=== PATIENT | female | born 1985 | race Caucasian/White ===

== ENCOUNTER 2020-11-16 13:10 | Outpatient (CLI) | payer BC, SELFPAY ==
--- NOTE | 2020-11-16 | ECG_ITS ---
Measurements Intervals [place] Rate: 98 P: 58 OK: 129 QRS: -1 QRSD: 89 T: 7 QT: 332 QTc: 424 Interpretive Statements SINUS RHYTHM FREQUENT VENTRICULAR PREMATURE COMPLEXES LOW QRS VOLTAGE IN PRECORDIAL LEADS BORDERLINE R WAVE PROGRESSION, ANTERIOR LEADS BORDERLINE T WAVE ABNORMALITY- INFERIOR LEADS ABNORMAL ECG Electronically Signed On 11-16-2020 14:06:24 CDT by Akash Melgoza D.O.
== END 2020-11-16 13:11 | disposition home or self-care (01) ==
PROVIDERS: PCP Family Medicine
DX: Z01.810 Encounter for preprocedural cardiovascular examination (principal); R94.31 Abnormal electrocardiogram [ECG] [EKG]
CPT/HCPCS: 93005

== ENCOUNTER 2025-01-15 14:18 | Outpatient (CLI) | payer BC, SELFPAY ==
--- NOTE | ~2025-01-15 | MM_ITS ---
EXAMINATION: MM scrn gil implant BI w chemo INDICATION: Asymptomatic, referred for screening mammogram COMPARISON: 12/20/2015 TECHNIQUE: Digital Breast Tomosynthesis CC, MLO, and implant displaced CC and MLO views of Both breasts were obtained with computer-aided detection to assist in interpretation of the study. FINDINGS: There are scattered areas of fibroglandular density. Bilateral breast Retropectoral Silicone implants in place appears intact. No focal dominant mass, architectural distortion, or suspicious microcalcifications are identified. There are no features to suggest malignancy. IMPRESSION: 1. No evidence of malignancy in the breasts. 2. Both breasts Retropectoral Silicone implants appears intact. Recommend continued screening mammography BI-RADS 1, NEGATIVE Reviewed, dictated and finalized at location [facility]. [facility]
--- OUTSIDE RECORDS SUMMARY | 2025-01-15 20:31 | XMS_ITS | Clinical Summary ---
Author Organization [facility] Address [address] [place] [address] Care Team Providers Care Coater Slate Name Role Phone Aziza Zelaya DO Primary Care Provider Source Comments [facility],non-owned Affiliates and Associated Physician Practices is amultiple site organization consisting of ambulatory clinics and hospital sitesin [place], [place], [place] and [place]. This disclosure is being madepursuant to the Care Everywhere program and may not contain all information available regarding this patient. Last updated 17.[facility] Allergies No known active allergies Medications * Be aware that medications may not be up to date on this document. Alwaysverify current medications with the patient. AGUSTIN CONTOUR NEXT TEST test strip Use 1 Each as instructed once daily 7 8 Active insulin syringe-needle (BD ULTRAFINE II) 31G X 5/16 0.5 ML syringe 1 Each by Injection route as needed 10 9 Active MICROLET LANCETS MISC Use 1 Each as instructed as needed 7 8 Active Vit-Fe Fumarate-FA ( VITAMIN) 27-0.8 MG tablet Take 1 tablet by mouth once daily Active insulin aspart (NOVOLOG) vial Starting dose 16 units at bkrfst and supper. Increase only as instructed up to 60 units total per day. 20 mL 3 9 Active Additional Information Patient not taking.Reported on 12/05/2021 NOVOLIN N vial Current dose inject 18 units am and 25 units HS. Increase only as instructed up to 60 units per day. 20 mL 3 9 Active Additional Information Patient not taking.Reported on 12/05/2021 Acetaminophen 325 MG CAPS Take 1 tablet by mouth once daily Active ferrous sulfate CR (SLOW FE) 160 (50 Fe) MG tabletIndicatio ns:Iron Deficiency Take 160 mg by mouth daily with breakfast Reasons: Iron Deficiency Active valACYclovir (VALTREX) 1 GM tablet TAKE 1 TABLET BY MOUTH EVERY 12 HOURS FOR 3 DAYS 2 Active Active Problems Problem Noted Date Diagnosed Date Excess weight gain in , third trimester 08/08/2018 High-risk 07/06/2018 Borderline hypertension 07/06/2018 Overview (07/06/2018): 134/87 at 10 weeks Maternal morbid obesity, antepartum 07/05/2018 Overview (07/05/2018): Pre- BMI 40.7 History of umbilical hernia repair 07/05/2018 Overview (07/05/2018): 2016 History of LEEP (loop electr osurgical excision procedure) of cervix complicating 07/05/2018 Overview (07/06/2018): 2003; two subsequent term vaginal deliveries Insulin controlled gestation al diabetes mellitus (GDM) during 04/03/2018 Overview (07/20/2018): Early diagnosis. HbA1C 02/12/2018 5.6%. Technically she has T2DM (A1c 6.7% in 2017, improved with weight loss) that was diet-controlled before , and now requires insulin in . Her A1c was low enough early on that risks of malformations are closer to what is expected with GDM, rather than pre-existing disease. Her risks of complications are probably intermediate. 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 Two children without CF. Lab tests not available. Immunizations Immunization Administration Dates Next Due INFLUENZA VACCINE, QUADR. 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 Gender Identity Not on file Sexual Orientation Not on file Last Filed Vital Signs Vital Sign Reading Time Taken Comments Blood Pressure 114/79 12/05/2021 9:45 AM CDT Pulse 79 12/05/2021 9:45 AM CDT Temperature 36.8 C (98.2 F) 12/05/2021 9:45 AM CDT Respiratory Rate - - Oxygen Saturation 97% 12/05/2021 9:45 AM CDT Inhaled Oxygen Concentration - - Weight 81.5 kg (179 lb 9.6 oz) 12/05/2021 9:45 A M CDT Height 170.2 cm (5' 7) 12/05/2021 9:45 AM CDT Body Mass Index 28.13 12/05/2021 9:45 AM CDT Plan of Treatment Health Maintenance Due Date Last Done Comments LIPID TESTING 1984 MAMMOGRAM 1984 HIV SCREENING 05/30/1999 HEPATITIS C SCREENING 05/25/2002 HEPATITIS B VACCINE (1 of 3 - 19+ 3-dose series) 05/30/2003 HPV VACCINE (1 - 3-dose SCDM series) 05/30/2011 PAP with HPV 01/11/2022 01/11/2017 (Done Outside Per Report) DEPRESSION SCREENING 03/12/2024 COVID-19 VACCINE ( - season) 2024 11/03/2020, 10/14/2020 INFLUENZA VACCINE (#1) 2024 9, 12/17/2014, 05/18/2014, Additional history exists DTAP/TDAP/TD VACCINES (2 - Td or Tdap) 2028 2018 ZOSTER VACCINE (1 of 2) 2034 HIB VACCINE Aged Out No longer eligi ble based on patient's age to complete this topic MENINGOCOCCAL (Group B) VACCINE SHARED DECISION-MAKING Aged Out No longer eligible based on patient's age to complete this topic MENINGOCOCCAL GROUPS A/C/Y/W VACCINE Aged Out No longer eligible based on patient's age to complete this topic PNEUMOCOCCAL VACCINE Aged Out No long er eligible based on patient's age to complete this topic Insurance ANTH Care Teams Coater Slate Relationship Specialty Start Date End Date Aziza Zelaya DO [address] [place] [phone] PCP - General 08/19/21
--- OUTSIDE RECORDS SUMMARY | 2025-01-15 20:31 | XMS_ITS | Clinical Summary ---
Author Organization [facility] Address [address] [place] [place] [address] Phone Care Team Providers Care Case Checker Name Role Phone Aziza Zelaya Primary Care Provider [phone] Allergies No known active allergies Medications HYDROcodone-acet aminophen (HYCET) 7.5-325 mg/15 mL SolutionIndicati ons:Preop testing Take 15 mL by mouth every 6 hours as needed for Pain, Severe. Max Daily Amount: 60 mL 300 mL 11/25/2020 12:14 PM CDT 11/24/2020 Active ondansetron (Zofran ODT) 4 mg Tablet, Rapid DissolveIndicati ons:nausea Place 1 Tablet (4 mg) under tongue every 6 hours as needed for Nausea/Vomi ting. 28 Tablet 11/25/2020 12:14 PM CDT 11/24/2020 Active Active Problems Problem Noted Date Diagnosed Date Prediabetes 11/25/2020 Post-operative nausea and vomiting 11/25/2020 General medical exam 11/24/2020 Obesity (BMI 35.0-39.9 without comorbidity) 11/10 Postoperative pain 11/24/2020 Immunizations Immunization Administration Dates Next Due (ADACEL/BOOSTRIX)(10 YR UP) TDAP VACCINE, 0.5ML, IM 2018 (PFIZER)(12 YR UP) COVID-19 VACCINE - EMERGENCY USE AUTHORIZATION, MRNA, [id number](PF) 30 MCG/0.3 ML IM SUSP 11/03/2020,10/14/2020 INFLUENZA VACCINE QUADRIVALENT 6 MOS UP PF IM Family History Medical History Relation Name Comments Healthy Father Healthy Mother Relation Name Status Comments Father Alive Mother Alive Social History Tobacco Use Types Packs/Day Years Used Date Smoking Tobacco: Former Cigarettes 1 6 0 11/23/2006 - 11/23/2012 Smokeless Tobacco: Never Alcohol Use Standard Drinks/Week Comments Not Currently 0 (1 standard drink = 0.6 oz pur e alcohol) Comments No Sex and Gender Information Value Date Recorded Sex Assigned at Not on file Legal Sex Female 8:02 AM CDT Gender Identity Not on file Sexual Orientation Not on file Last Filed Vital Signs Vital Sign Reading Time Taken Comments Blood Pressure 114/69 10/04/2022 2:46 PM CDT Pulse 98 10/04/2022 2:30 PM CDT Temperature 36.1 C (97 F) 10/04/2022 1:21 PM CDT Respiratory Rate 71 10/04/2022 2:46 PM CDT Oxygen Saturation 97% 10/04/2022 2:46 PM CDT Inhaled Oxygen Concentration - - Weight 79.4 kg (175 lb) 09/28/2022 9:04 AM CDT Height 170.2 cm (5' 7) 09/28/2022 9:04 AM CDT Body Mass Index 27.41 09/28/2022 9:04 AM CDT Plan of Treatment Health Maintenance Due Date Last Done Comments HEPATITIS B VACCINES (1 of 3 - 19+ 3-dose series) 05/30/2003 HPV/Cotest (21-29) 2005 HPV/Cotest (30-65) 2014 BREAST CANCER SCREENING 2024 INFLUENZA VACCINE (#1) 2024 9, 12/17/2014, 05/18/2014 COVID-19 Vaccine ( - 2024-2 6 season) 2024 11/03/2020, 10/14/2020 CERVICAL CANCER SCREENING 07/31/2025 PAP SMEAR 07/31/2025 07/31/2022, 06/25/2020 DTAP/TDAP/TD VACCINES (3 - T d or Tdap) 2028 2018, 05/18/2014 HPV VACCINES Completed 02/11/2008, 03/2007, 07/12/2007, Additional history exists Medical Devices Implanted Type Area Associate Engineer Device Identifier Shelf Expiration Date Model / Serial / Lot Seamguard Endogia 60 Blk [id number] - [id number] Implanted:Qty : 3 on 11/24/2020 by Jose Gonzalez MD at [facility] Biological N/A: Stomach [employer] 10/19/2023 [id number] [id number] / / [id number] Seamguard Endogia 60 Prpl [id number] - [id number] Implanted:Qty : 2 on 11/24/2020 by Jose Gonzalez MD at [facility] Biological N/A: Stomach [employer] 08/22/2023 [id number] [id number] / / [id number] Imp Breast Inspira 695ml Full Prfl Scf-695 - Mswb - [id number] Implanted:Qty : 1 on 10/04/2022 by Peter Durbin MD at [facility] Mammary Left: Breast [employer] [id number] 11/22/2026 SCF-695 / [id number] / [id number] Imp Breast Inspira 745ml Full Prfl Scf-745 - Mswb - [id number] Implanted:Qty : 1 on 10/04/2022 by Peter Durbin MD at [facility] Mammary Right: Breast [employer] [id number] 12/24/2023 SCF-745 / [id number] / [id number] Mesh Abdomen Insurance [employer] Commercial Advance Directives For more information, please contact: [phone] * Full Code (Latest Code Status on File) Date Activated Date Inactivated Comments 10/04/2022 10:56 AM 10/05/2022 3:00 AM * Full Code Date Activated Date Inactivated Comments 11/24/2020 6:08 AM 11/25/2020 6:22 PM Care Teams Case Checker Relationship Specialty Start Date End Date Aziza Zelaya DO [address] [place] [phone] PCP - General Family Practice 11/24/20
--- OUTSIDE RECORDS SUMMARY | 2025-01-15 20:31 | XMS_ITS | Encounter Summary ---
Author Organization [facility] Address [address] [place] [address] Care Team Providers Care Red Cross Worker Name Role Phone Aziza Zelaya DO Primary Care Provider [phone] Encounter Details Date Type Department Care Team (Late st Contact Info) Description 11/12/2020 Abstract [facility] Operating Room [address] [phone] Mikki Metz RN Social History Tobacco Use Types Packs/Day Years Used Date Smoking Tobacco: Never Assessed Comments Unknown Sex and Gender Information Value Date Recorded Sex Assigned at Not on file Legal Sex Female 8:02 AM CDT Gender Identity Not on file Sexual Orientation Not on file documented as of this encounter Plan of Treatment Not on file documented as of this encounter Visit Diagnoses Not on filedocumented in this encounter Care Teams Red Cross Worker Relationship Specialty Start Date End Date Aziza Zleaya DO [address] [place] [phone] PCP - General Family Practice 11/24/20 documented as of this encounter
--- OUTSIDE RECORDS SUMMARY | 2025-01-15 20:31 | XMS_ITS | Encounter Summary ---
Author Organization [facility] Address [address] [place] [address] Care Team Providers Care Web Operations Specialist Name Role Phone Aziza Zelaya DO Primary Care Provider [phone] Encounter Details Date Type Department Care Team (Late st Contact Info) Description 04/12/2023 Lab Requisition [facility] - Derm[facility] Lab [address] [place] [address] Eusebio Ovalle MD [address] [place] [address] Social History Tobacco Use Types Packs/Day Years Used Date Smoking Tobacco: Never Smokeless Tobacco: Never Alcohol Use Standard Drinks/Week Comments No 0 (1 standard drink = 0.6 oz pur e alcohol) Comments No Sex and Gender Information Value Date Recorded Sex Assigned at Not on file 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 Gender Identity Not on file Sexual Orientation Not on file documented as of this encounter Plan of Treatment Not on file documented as of this encounter Procedures Procedure Name Priority Date/Time Associated Diagnosis Comments DERMATOPATHOLOGY Routine 04/10/2023 3:33 AM LEATHER GOODS II ASSEMBLER documented in this encounter Results * DERMATOPATHOLOGY (04/10/2023 3:33 AM LEATHER GOODS II ASSEMBLER) Case Report Dermatopathology Report Case: [id number] Authorizing Provider: Eusebio Ovalle MD Collected: 04/10/2023 03:33 AM Ordering Location: [facility] Lab Received: 04/12/2023 11:53 AM Pathologist: Yun Garcia MD Specimen: Skin, left mid scalp 1:30 PM [facility]MAT[facility] Final Diagnosis Specimen A. 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 Path# [id number] 1:30 PM [facility]MATOPATHOLOG[facility] Gross Description Specimen A: Received is one formalin filled container labeled with the patient's name and designated left mid scalp. The specimen consists of a shave biopsy measuring 5x5x3 mm. Jar 0. 1:30 PM [facility]ERMATOPATHOLOG[facility] Microscopic Description Specimen A. SKIN, left mid scalp: Sections show nests, cords, and strands of cytologically bland melanocytes that mature with descent into the dermis. There are areas in which the melanocytes have a neuroid appearance. 1:30 PM [facility]ERMATOPATHOLOG[facility] Disclaimer An external and internal positive and negative controls are appropriate for the histochemical, immunohistochemical and immunofluorescence stain(s) in this case (if any), except where stated explicitly. The performance characteristics of the stain(s) cited in this report were developed and its performance characteristic determined by the Dermatopathology Laboratory at [facility], directed by Dr. Robe Yanez. These tests need not be, and therefore are not, approved by the [place] Food and Drug Administration. The tests are used for clinical purposes. Billing Codes Specimen Charges Stain Charges 68806 1 1:30 PM [facility]ERMATOPATHOLOG[facility] Embedded Images 1:30 PM [facility]MATOPATHOLOG[facility] Pathology/Cytolo gy TISSUE SPECIMEN FROM SKIN / Unknown 04/10/2023 3:33 AM LEATHER GOODS II ASSEMBLER 04/12/2023 11:53 AM LEATHER [employer] II ASSEMBLER us Eusebio Ovalle MD LAB - PATHOLOGY/CYTOLOGY ORDER ABDOULAYE Final Result DERMATOPATHOLOGY LABORATORY [facility] - Department of Dermatology [facility] [address] [place] [address], [address] [phone] documented in this encounter Visit Diagnoses Not on filedocumented in this encounter Care Teams Web Operations Specialist Relationship Specialty Start Date End Date Aziza Zelaya DO [address] [place] [phone] PCP - General 08/19/21 documented as of this encounter
--- OUTSIDE RECORDS SUMMARY | 2025-01-15 20:32 | XMS_ITS | Data Portability ---
Author Organization [facility] Address [address] [place] [address] Care Team Providers Care Commercial Electrician Name Role Phone [place] Primary Care Provider Assessment Encounter Date Assessment Date Assessment LastModified by Organization Details LastModified Time 07/31/2022 07/31/2022 Annual gynecological exam performed. Patient will come back in a year unless there are new symptoms. Not available 07/31/2022 12:02:46 08/02/2023 08/02/2023 Annual gynecological exam performed. Patient will come back in a year unless there are new symptoms. [email or web address] Not available 08/02/2023 09:45:54 09/04/2024 09/04/2024 Annual gynecological exam performed. Patient will come back in a year unless there are new symptoms. [email or web address] Not available 09/04/2024 10:15:49 Plan of Treatment Reminders Order Date Submit Date Provider Last Modified By Organization Details Last Modified Time Details Appointments None recorded. Lab None recorded. Referral None recorded. Procedures None recorded. Surgeries None recorded. Imaging None recorded. Medication Orders Valtrex 1 gram tablet [id number] [email or web address] [facility][id number], [place], [place], [id number], 09:41:39 Patient TargetsNo targets recorded. Patient InstructionsNo instructions recorded. Reason for Referral None Reported. Results Created Date Observation Date Name Description Value Unit Range Abnormal Flag Note LastModifiedBy Organization Detail LastModifiedTime 07/30/192022 HEPAT ITIS B SURFA CE ANTIG EN hepatitis B surface antigen Non-re active non-re active This assay was perfo rmed using [employer] ratio n reage nts and test kits. Value s obtai mikaela with other assay metho ds or kits canno t be used inter [facility] . Not Available [facility] (Lab) [address] [place], [address], 08/01/2021 20:42:08 07/30/19 22 07/29/2021 HEPAT ITIS C ANTIB GOLDY SCREE N, REFLE X TO CONFI RMATI ON hepatitis C antibody Non-re active non-re active This assay was perfo rmed using [employer] reage nts and test kits. Value s obtai mikaela with other assay metho ds or kits canno t be used inter [facility] . Not Available [facility] (Lab) [address], [place], [address], 08/01/2021 20:42:09 07/30/19 22 07/29/2021 HERPE S SIMPL EX VIRUS TYPE 2 SPECI FIC AB, IGG herpes simplex virus 2 IgG Positi ve negati ve abnormal Not Available [facility] (Lab) [address] [place], [address], 08/01/2021 20:42:09 07/30/19 22 07/29/2021 HERPE S SIMPL EX VIRUS TYPE 2 SPECI FIC AB, IGG herpes simples virus 2 IgG, quant 4.6 ai 0.0-0. 8 high Not Available [facility] (Lab) [address] [place], [address], 08/01/2021 20:42:09 07/30/19 22 07/29/2021 HIV 1/2 ANTIG EN/AN TIBOD Y, REFLE X CONFI RMATI ON HIV Ag-Ab total quant 0.13 idx <1.00 Not Available [facility] (Lab) [address] [place], [address], 08/01/2021 20:42:10 07/30/19 22 07/29/2021 HIV 1/2 ANTIG EN/AN TIBOD Y, REFLE X CONFI RMATI ON HIV Ag-Ab total Non-re active non-re active Not Available [facility] (Lab) [address], [place], [address], 08/01/2021 20:42:10 07/30/19 22 07/29/2021 HIV 1/2 ANTIG EN/AN TIBOD Y, REFLE X CONFI RMATI ON HIV-1 antibody quant 0.10 idx <1.00 Not Available [facility] (Lab) [address], [place], [address], 08/01/2021 20:42:10 07/30/19 22 07/29/2021 HIV 1/2 ANTIG EN/AN TIBOD Y, REFLE X CONFI RMATI ON HIV-1 antibody Non-re active non-re active Not Available [facility] (Lab) [address], [place], [address], 08/01/2021 20:42:10 07/30/19 22 07/29/2021 HIV 1/2 ANTIG EN/AN TIBOD Y, REFLE X CONFI RMATI ON HIV-1 antigen (P24) quant 0.13 idx <1.00 Not Available [facility] (Lab) [address] [place], [address], 08/01/2021 20:42:10 07/30/19 22 07/29/2021 HIV 1/2 ANTIG EN/AN TIBOD Y, REFLE X CONFI RMATI ON HIV-1 antigen (P24) Non-re active non-re active Not Available [facility] (Lab) [address], [place], [address], 08/01/2021 20:42:10 07/30/19 22 07/29/2021 HIV 1/2 ANTIG EN/AN TIBOD Y, REFLE X CONFI RMATI ON HIV-2 antibody quant 0.06 idx <1.00 Not Available [facility] (Lab) [address], [place], [address], 08/01/2021 20:42:10 07/30/19 22 07/29/2021 HIV 1/2 ANTIG EN/AN TIBOD Y, REFLE X CONFI RMATI ON HIV-2 antibody Non-re active non-re active HIV testi ng is perfo rmed using Multi plex- [employer]ead Immun oassa y techn ology . The final overa ll HIV Ag-Ab resul t is deter mined based on the final resul t for each indiv idual susan te. If any of the susan kenton has 2 or more repli cates that are REACT ANETA, the final overa ll HIV Ag-Ab resul t is also React aneta. A Non-R eacti ve test resul t at any point in the inves tigat ion of indiv idual subje cts does not precl ude the possi bilit y of expos ure to or infec tion with HIV-1 and/o r HIV-2 . Non-R eacti ve resul ts can occur if the quant ity of marke remedios prese nt in the sampl e is below the detec tion limit s of the assay . React aneta speci mens must be inves tigat ed by addit ional , more speci fic suppl ement al tests . Speci men confi rmati on will be perfo rmed by the [employer] us HIV 1/2 Suppl ement al Assay . The perfo rmanc e of this assay has not been estab lishe d for neona kenton and the assay shoul d not be used in indiv idual s young er than 2 years of age. Not Available [facility] (Lab) [address], [place], [address], 08/01/2021 20:42:10 07/30/19 22 07/29/2021 RPR SCREE N/REF FRITZ TITER /FTA RPR screen Nonrea ctive nonrea ctive Not Available [facility] (Lab) [address], [place], [address], 08/01/2021 20:42:10 07/30/19 22 07/29/2021 HEPAT ITIS B CORE, IGM hepatitis B core IgM antibody Negati ve negati ve Not Available [facility] (Lab) [address], [place], [address], 08/01/2021 20:42:10 07/30/19 22 07/29/2021 IMAGE GUIDE D PAP AND HPV REGAR DLESS image guided Pap, HPV regardless of Pap result SEE RESULT S BELOW CASE REPOR T: Cytol ogy Gynec ologi torito Repor t Case: [id number] Autho sybil g Provi shanta: Juanis Haynes MD Colle cted: 07/29 1512 Order ing Locat ion: [place] [facility] Recei tamiko: 08/01 0814 First Scree n: Carolina Sanchez ret, CT Rescr een: Catrina betancur, Felipa thomas, CT Speci men: Scree john Pap - Image d, Cervi x STATE MENT OF ADEQU ACY: Satis facto ry for evalu ation Trans forma tion zone compo nent prese nt FINAL DIAGN OSIS: Negat aneta for Intra epith elial Marioio n or Cecilia au (NIL) . Elect sergey colon gabbi d by Felipa Kwon, CT on 2021 at 5:34 PM ----- ----- ----- ----- ----- ----- ----- ----- ----- ----- ----- ----- ----- ----- ----- ----- ----- ---- HPV RESUL TS: HPV mRNA E6/E7 : No HPV mRNA Detec david NOTE: This high risk HPV mRNA assay detec ts fourt een high- risk HPV types (16, 18, 31, 33, 35, 39, 45, 51, 52, 56, 58, 59, 66, 68) witho ut diffe renti ation . COMME NT: Note: This speci men was revie wed by a Cytot echno logis t and/o r Patho logis t (as indic ated in this repor t) after evalu ation using the Thinp rep Imagi ng Syste m. CLINI TORITO INFOR MATIO N: Menst rual Statu s: LMP (if appli cable ): Clini torito Histo ry/Pr eviou s Pap: Type of Neopl amada (if appli cable ): Signi fican t Clini torito Findi ngs: Other Histo ry: Hormo johnny (if appli cable ): PAP EDUCA JAVIER L NOTE: The Pap Test is a scree john test with an inher ent false negat aneta rate. Liqui d-bas ed sampl ing may decre ase, but will not elimi lenore, false negat aneta resul ts. A negat aneta resul t does not precl ude the prese nce and/o r devel opmen t of disea se, since the prese nce of abnor mal cells in the sampl e depen ds on the locat ion of the lesio n and sampl ing techn ique. Jina nued regul ar scree john is the best metho d of cance r preve ntion . If repor david cytol ogic findi ng do not corre late with physi torito and/o r histo rical findi ngs, furth er inves tigat ion is recom jessika d, as clini danica buenrostro nted. Not Available [facility] (Lab) [address], [place], [address], 08/04/2021 18:38:14 07/30/19 22 07/29/2021 CT/GC (ZEFERINO) , THINP REP VIAL chlamydia trachomatis, PCR Negati ve negati ve Not Available [facility] (Lab) [address], [place], [address], 08/04/2021 18:38:15 07/30/19 22 07/29/2021 CT/GC (ZEFERINO) , THINP REP VIAL neisseria gonorrhoeae, PCR Negati ve negati ve Not Available [facility] (Lab) [address], [place], [address], 08/04/2021 18:38:15 07/30/19 22 07/29/2021 TRICH OMONA S VAGIN RASHEED (RRNA ) trichomonas vaginalis ribosomal RNA (rrna) Negati ve negati ve Not Available [facility] (Lab) [address], [place], [address], 08/04/2021 18:38:16 08/01/19 23 07/31/2022 IMAGE GUIDE D PAP AND HPV REGAR DLESS image guided Pap, HPV regardless of Pap result SEE RESULT S BELOW CASE REPOR T: Cytol ogy Gynec ologi torito Repor t Case: [id number] Autho sybil mccullough Provi shanta: Juanis Haynes MD Colle cted: 07/31 1615 Order ing Locat ion: [place] [facility] Recei tamiko: 08/01 0152 First Scree n: Jackelyn Moise , CT Speci men: Scree john Pap - Image d, Cervi x STATE MENT OF ADEQU ACY: Satis facto ry for evalu ation Trans forma tion zone compo nent prese nt FINAL DIAGN OSIS: Negat aneta for Intra epith elial Lan morgan or Cecilia au (NIL) . Duane colon gabbi d by Jackelyn Moise , CT on 2022 at 3:39 PM ----- ----- ----- ----- ----- ----- ----- ----- ----- ----- ----- ----- ----- ----- ----- ----- ----- ---- HPV RESUL TS: HPV mRNA E6/E7 : No HPV mRNA Detec david NOTE: This high risk HPV mRNA assay detec ts fourt een high- risk HPV types (16, 18, 31, 33, 35, 39, 45, 51, 52, 56, 58, 59, 66, 68) witho ut diffe renti ation . COMME NT: This speci men was revie wed by a Cytot echno logis t and/o r Patho logis t (as indic ated in this repor t) after evalu ation using the Thinp rep Imagi ng Syste m. CLINI TORITO INFOR MATIO N: Menst rual Statu s: LMP (if appli cable ): Clini torito Histo ry/Pr eviou s Pap: Type of Neopl amada (if appli cable ): Signi fican t Clini torito Findi ngs: Other Histo ry: Hormo johnny (if appli cable ): PAP EDUCA JAVIER L NOTE: The Pap Test is a scree john test with an inher ent false negat aneta rate. Liqui d-bas ed sampl ing may decre ase, but will not elimi lenore, false negat aneta resul ts. A negat aneta resul t does not precl ude the prese nce and/o r devel opmen t of disea se, since the prese nce of abnor mal cells in the sampl e depen ds on the locat ion of the lesio n and sampl ing techn ique. Jina nued regul ar scree john is the best metho d of cance r preve ntion . If repor david cytol ogic findi ng do not corre late with physi torito and/o r histo rical findi ngs, furth er inves tigat ion is recom jessika d, as clini danica buenrostro nted. Not Available [facility] (Lab) [address], [place], [address], 08/01/2022 16:43:09 08/02/19 24 08/02/2023 IMAGE GUIDE D PAP AND HPV REGAR DLESS image guided Pap, HPV regardless of Pap result SEE RESULT S BELOW CASE REPOR T: Cytol ogy Gynec ologi torito Repor t Case: [id number] Autho sybil g Provi shanta: Juanis Haynes MD Colle cted: 08/01 1011 Order ing Locat ion: [place] [facility] Recei tamiko: 08/02 0221 First Scree n: Sherm an, Patti Speci men: Scree john Pap - Image d, Cervi x STATE MENT OF ADEQU ACY: Satis facto ry for evalu ation Trans forma tion zone compo nent prese nt ----- ----- ----- ----- ----- ----- ----- ----- ----- ----- ----- ----- ----- ----- ----- ----- ----- ---- FINAL DIAGN OSIS: Negat aneta for Intra epith elial Lan morgan or Cecilia au (NIL) . Elect sergey colon gabbi d by Patti Olmos on 2023 at 8:18 PM ----- ----- ----- ----- ----- ----- ----- ----- ----- ----- ----- ----- ----- ----- ----- ----- ----- ---- HPV RESUL TS: HPV mRNA E6/E7 : No HPV mRNA Detec david NOTE: This high risk HPV mRNA assay detec ts fourt een high- risk HPV types (16, 18, 31, 33, 35, 39, 45, 51, 52, 56, 58, 59, 66, 68) witho ut diffe renti ation . COMME NT: This speci men was revie wed by a Cytot echno logis t and/o r Patho logis t (as indic ated in this repor t) after evalu ation using the Thinp rep Imagi ng Syste m. CLINI TORITO INFOR MATIO N: Menst rual Statu s: LMP (if appli cable ): Clini torito Histo ry/Pr eviou s Pap: Type of Neopl amada (if appli cable ): Signi fican t Clini torito Findi ngs: Other Histo ry: Hormo johnny (if appli cable ): PAP EDUCA JAVIER L NOTE: The Pap Test is a scree john test with an inher ent false negat aneta rate. Liqui d-bas ed sampl ing may decre ase, but will not elimi lenore, false negat aneta resul ts. A negat aneta resul t does not precl ude the prese nce and/o r devel opmen t of disea se, since the prese nce of abnor mal cells in the sampl e depen ds on the locat ion of the lesio n and sampl ing techn ique. Jina nued regul ar scree john is the best metho d of cance r preve ntion . If repor david cytol ogic findi ng do not corre late with physi torito and/o r histo rical findi ngs, furth er inves tigat ion is recom jessika d, as clini danica buenrostro nted. Not Available [facility] (Lab) [address], [place], [address], 08/07/2023 21:23:02 09/05/19 25 09/04/2024 IMAGE GUIDE D PAP AND HPV REGAR DLESS image guided Pap, HPV regardless of Pap result SEE RESULT S BELOW CASE REPOR T: Cytol ogy Gynec ologi torito Repor t Case: [id number] Autho sybil mccullough Provi shanta: Juanis Haynes MD Colle cted: 09/04 1318 Order ing Locat ion: [place] [facility] [place] Recei tamiko: 09/05 0140 First Scree n: Strverna z, Willi am, CT Speci men: Scree john Pap - Image d, Cervi x STATE MENT OF ADEQU ACY: Satis facto ry for evalu ation Trans forma tion zone compo nent prese nt ----- ----- ----- ----- ----- ----- ----- ----- ----- ----- ----- ----- ----- ----- ----- ----- ----- ---- FINAL DIAGN OSIS: Negat aneta for Intra epith elial Lesio n or Malig angely (NIL) . Elect sergey colon gabbi d by Raji alcantar, Robbie pacheco, CT on 2024 at 0857 CDT ----- ----- ----- ----- ----- ----- ----- ----- ----- ----- ----- ----- ----- ----- ----- ----- ----- ---- HPV RESUL TS: HPV mRNA E6/E7 : No HPV mRNA Detec david NOTE: This high risk HPV mRNA assay detec ts fourt een high- risk HPV types (16, 18, 31, 33, 35, 39, 45, 51, 52, 56, 58, 59, 66, 68) witho ut diffe renti ation . COMME NT: This speci men was revie wed by a Cytot echno logis t and/o r Patho logis t (as indic ated in this repor t) after evalu ation using the Thinp rep Imagi ng Syste m. CLINI TORITO INFOR MATIO N: Menst rual Statu s: LMP (if appli cable ): Clini torito Histo ry/Pr eviou s Pap: Type of Neopl amada (if appli cable ): Signi fican t Clini torito Findi ngs: Other Histo ry: Hormo johnny (if appli cable ): PAP EDUCA JAVIER L NOTE: The Pap Test is a scree john test with an inher ent false negat aneta rate. Liqui d-bas ed sampl ing may decre ase, but will not elimi lenore, false negat aneta resul ts. A negat aneta resul t does not precl ude the prese nce and/o r devel opmen t of disea se, since the prese nce of abnor mal cells in the sampl e depen ds on the locat ion of the lesio n and sampl ing techn ique. Jina nued regul ar scree john is the best metho d of cance r preve ntion . If repor david cytol ogic findi ng do not corre late with physi torito and/o r histo rical findi ngs, furth er inves tigat ion is recom jessika d, as aliciai danica owened. Not Available [facility] (Lab) [address], [place], [address], 09/08/2024 10:00:55 08/10/19 22 08/09/2021 US, pelvi s No observ ation record ed. [email or web address] [place] [address], [place], [address], 08/09/2021 17:52:39 08/10/19 22 08/09/2021 US, trans vagin al No observ ation record ed. [email or web address] [place] [address], [place], [address], 08/09/2021 17:52:50 08/10/19 22 08/09/2021 US, pelvi s No observ ation record ed. [email or web address] [place] [address] [place] [address] [address], [place], [address], 08/09/2021 18:52:16 01/16/20 25 01/15/2025 MAMMO , scree john, digit al, bilat eral No observ ation record ed. [facility] [address], [place], [address], 01/15/2025 20:10:07 Result Notes None recorded. Problems Name Problem SNOMED Code Status Onset Date Resolution Date Notes Provider Name and Address Organization Details Recorded Time Pregnanc y test positive [id number] Completed 201105/27/2012 Pregnanc y examinat ion or test, positive result;R ecorded Elsewher e: No Locat ion: [facility] S ource: EHR Director Of Personnel daniel: N Jarek ce ID: [id number] Herbert lable Time: 03:30:00 PM Bonnie spain [place] - [facility] 2 13:04:30 Primigra yumiko [id number] Completed 201105/27/2012 Supervis ion of normal first pregnanc y;Record ed Elsewher e: No Locat ion: Kasey lee [facility] S ource: EHR Director Of Personnel daniel: N Annemarieti ce ID: [id number] Herbert lable Time: 11:00:00 AM Bonnie spain [facility] 2 13:04:58 anatomy study Completed 201105/27/2012 SCRN ANATMC SURVEY;R ecorded Elsewher e: No Locat ion: Kasey lee [facility] S ource: EHR Director Of Personnel daniel: N Annemarieti ce ID: [id number] Herbert lable Time: 09:00:00 AM Bonnie spain [facility] 2 12:43:49 Excessiv e growth affectin g manageme nt of mother [id number] Completed 201205/27/2012 Excessiv e growth, affectin g manageme nt of mother, antepart um;Recor ded Elsewher e: No Locat ion: Kasey lee [facility] S ource: EHR Director Of Personnel daniel: N Practi ce ID: [id number] Herbert lable Time: 05:15:00 PM Bonnie spain [facility] 2 12:44:19 Poor growth affectin g manageme nt [id number] Completed 201205/27/2012 Poor growth, affectin g manageme nt of mother, antepart um conditio n or complica tion;Rec orded Elsewher e: No Locat ion: Kasey lee [facility] S ource: EHR Director Of Personnel daniel: N Practi ce ID: [id number] Herbert lable Time: 02:00:00 PM Not Available [facility] 0 16:29:42 Benign essentia l hyperten beverly complica ting pregnanc y, childbir th and the puerperi um - not delivere d [id number] Completed 201205/27/2012 Antepart um benign essentia l hyperten beverly;Rec orded Elsewher e: No Locat ion: Kasey lee [facility] S ource: EHR Director Of Personnel daniel: N Jarek ce ID: [id number] Herbert lable Time: 02:00:00 PM Not Available [facility] 0 16:29:54 Postpart um care Completed 201205/27/2012 Routine postpart um follow-u p;Record ed Elsewher e: No Locat ion: Kasey lee [facility] S ource: EHR Director Of Personnel daniel: N Jarek ce ID: [id number] Herbert lable Time: 08:45:00 AM Bonnie Diaz [facility] 2 13:05:04 Problem Notes None recorded. Procedures Surgical History Date Name Laterality Status Provider Name and Address Organization Details Recorded Time 08/02/19 24 Date of Last Pap Smear completed Kierra Scott [facility] 09/04/2024 10:19:58 08/19/19 22 Endometrial Ablation with Hysteroscopy completed David Haynes MD [address], [place], [address], [facility] 08/18/2021 14:52:06 03/12/19 22 Endometrial Ablation completed [facility] 07/31/2022 12:16:11 03/12/19 16 hernia repair completed [facility] 06/25/2020 12:05:06 Abdominoplasty completed [facility] 07/31/2022 12:03:13 Breast Surgery completed [facility] 07/31/2022 12:03:13 LEEP completed [facility] 06/25/2020 12:03:20 Tubal Ligation completed [facility] 06/25/2020 12:03:20 Imaging Results None recorded. Procedure Notes None recorded. Medical Equipment None Reported. Allergies No known drug allergies Medications Name Sig Start Date Stop Date Status Note LastModified by Organization Details LastModified Time azithromy oscar 250 mg tablet TAKE 2 TABLETS BY MOUTH FOR 1 DAY THEN TAKE 1 TABLET BY MOUTH DAILY FOR 4 DAYS 08/01 completed Not Available Not Available Not Available ibuprofen 800 mg tablet TAKE 1 TABLET BY MOUTH 2 HOURS BEFORE PROCEDUR E 08/25 completed Not Available Not Available Not Available fluconazo le 150 mg tablet 08/29 completed Not Available Not Available Not Available glyburide 2.5 mg tablet take 1 tablet by oral route 2 times a day at breakfas t and bedtime 02/11 completed Prescrib ed Elsewher e: No Locat ion: [facility]ify By: amkfela peckunter DateTime : 06/12/19 15 03:00:00 PM Not Available Not Available Not Available valacyclo vir 1 gram tablet TAKE 1 TABLET BY MOUTH EVERY 12 HOURS FOR 3 DAYS 08/01 completed Not Available Not Available Not Available hydrocodo ne 5 mg-acetam inophen 325 mg tablet TAKE 1 TO 2 TABLETS BY MOUTH EVERY 6 HOURS NEEDED FOR SEVERE SHOULDER PAIN active Not Available Not Available No t Available ondansetr on HCl 8 mg tablet TAKE 1 TABLET BY MOUTH 2 HOURS BEFORE THE PROCEDUR E 08/25 completed Not Available Not Available Not Available phentermi ne 15 mg capsule TAKE 1 CAPSULE BY MOUTH DAILY 09/04 completed Not Available Not Available Not Available phentermi ne 37.5 mg tablet TAKE 1 TABLET BY MOUTH DAILY active Not Available Not Available No t Available Tamiflu 75 mg capsule take 1 capsule by oral route every day 05/18 completed Prescrib ed Elsewher e: No Locat ion: [facility] By: lizett peckunter DateTime : 01/27/20 14 03:30:00 PM Not Available Not Available Not Available hydrocodo ne 10 mg-acetam inophen 325 mg tablet TAKE 1 TABLET BY MOUTH 2 HOURS BEFORE PROCEDUR E 08/25 completed Not Available Not Available Not Available triamcino lone acetonide 0.1 % topical cream APPLY TOPICALL Y TO THE AFFECTED AREA TWICE DAILY NEEDED FOR ITCHING 09/04 completed Not Available Not Available Not Available cefadroxi l 500 mg capsule TAKE 1 CAPSULE BY MOUTH TWICE DAILY 08/29 completed Not Available Not Available Not Available oxycodone -acetamin ophen 5 mg-325 mg tablet TAKE 1 TABLET BY MOUTH EVERY 4 HOURS NEEDED PAIN 08/01 completed Not Available Not Available Not Available alprazola m 0.5 mg tablet TAKE 1 TABLET BY MOUTH 2 HOURS BEFORE PROCEDUR E 08/25 completed Not Available Not Available Not Available Metrogel Vaginal 0.75 % (37.5 mg/5 gram) insert 1 applicat orful by vaginal route every day at bedtime 12/30 completed Prescrib ed Elsewher e: No Locat ion: [facility] By: akanksha Lee ncounter DateTime : 12/29/19 02:35:10 PM Not Available Not Available Not Available gabapenti n 300 mg capsule TAKE 1 CAPSULE BY MOUTH TWICE DAILY 07/31 completed Not Available Not Available Not Available mupirocin 2 % topical ointment APPLY EVERY NIGHT AT BEDTIME INSIDE NARES STARTING 5 DAYS PRIOR TO SURGERY 08/01 completed Not Available Not Available Not Available methylpre dnisolone 4 mg tablets in a dose pack FOLLOW PACKAGE DIRECTIO NS 08/29 completed Not Available Not Available Not Available albuterol sulfate HFA 90 mcg/actua tion aerosol inhaler INHALE 2 PUFFS BY MOUTH EVERY 4 HOURS NEEDED FOR SHORTNES S OF BREATH OR WHEEZING 08/29 completed Not Available Not Available Not Available Vitamin D2 1,250 mcg (50,000 unit) capsule take 1 capsule by oral route every week 02/11 completed Prescrib ed Elsewher e: No Locat ion: [facility] By: amkuhsirisha Lee ncounter DateTime : 05/26/19 15 04:47:05 PM Not Available Not Available Not Available ondansetr on 4 mg disintegr ating tablet DISSOLVE 1 TABLET UNDER THE TONGUE EVERY 6 HOURS NEEDED FOR NASUEA 08/01 completed Not Available Not Available Not Available Ortho Tri-Cycle n (28) 0.18 mg(7)/0.2 15mg(7)/0 .25 mg(7)-0.0 35 mg tablet take 1 tablet by oral route every day 12/22 completed Prescrib ed Elsewher e: No [facility] By: kerry matta DateTime : 10/01/19 13 01:30:00 PM Not Available Not Available Not Available diazepam 5 mg tablet TAKE 1 TABLET BY MOUTH THREE TIMES DAILY NEEDED FOR MUSCLE SPASMS 08/29 completed Not Available Not Available Not Available Candy 0.35 mg tablet TAKE 1 TABLET BY ORAL ROUTE EVERY DAY 02/11 completed Prescrib ed Elsewher e: No Locat ion: [facility] By: anisha peckunter DateTime : 12/01/19 15 10:24:24 AM Not Available Not Available Not Available hydrocodo ne 7.5 mg-acetam inophen 325 mg/15 mL oral solution 07/29 completed Not Available Not Available Not Available Diabetes Health 0.8 mg-250 mg-50 mg oral pack PT. CHECKING B/S 4 TIMES DAILY 12/18 completed Prescrib ed Elsewher e: No Locat ion: [facility] By: jet Rodriguez r DateTime : 01/08/20 18 03:30:00 PM Not Available Not Available Not Available Clindesse 2 % vaginal cream,ext ended release insert 1 applicat orful by vaginal route once 02/11 completed Prescrib ed Elsewher e: No Locat ion: [facility] By: anisha peckunter DateTime : 12/31/19 15 01:27:59 PM Not Available Not Available Not Available Vitamins and Minerals active Not Available Not Available Not Available Qsymia 3.75 mg-23 mg capsule, extended release 1 capsule every day by oral route. 2024 active Not Available Not Available Not Avai lable Fora Q70-A77-I 10-D20 strips-la ncets 30 gauge combo pack QID fasting and hour after each meal 01/07 completed Prescrib ed Elsewher e: No Locat ion: [facility] By: danis whittaker DateTime : 12/08/19 17 10:05:30 AM Not Available Not Available Not Available One Daily 27 mg iron-800 mcg tablet take 1 tablet by oral route every day 02/11 completed Prescrib ed Elsewher e: Yes Loca tion: [facility] By: anisha shaffer DateTime : 12/23/19 14 04:00:00 PM Not Available Not Available Not Available Taytulla 1 mg-20 mcg (24)/75 mg (4) capsule take 1 capsule by oral route every day at the same time each day 03/20 completed Prescrib ed Elsewher e: No Locat ion: [facility] By: evans matta DateTime : 03/20/19 18 08:52:45 AM Not Available Not Available Not Available Vitals Date Recorded Body height Body mass index (BMI) Body weight Systolic And Diastolic Provider Name and Address Organization Details Last Updated DateTime 07/31/2022 157.48 cm 31.6 kg/m2 59126.48 g 110/66 mm[Hg] [facility] 07/31/2022 12:14:09 Date Recorded Body height Body mass index (BMI) Body weight Systolic And Diastolic Provider Name and Address Organization Details Last Updated DateTime 08/02/2023 160.02 cm 33.1 kg/m2 94851.77 g 107/72 mm[Hg] Odalis Madrid [facility] 08/02/2023 09:46:19 Date Recorded Body height Body mass index (BMI) Body weight Systolic And Diastolic Provider Name and Address Organization Details Last Updated DateTime 08/18/2021 157.48 cm 34 kg/m2 00678.18 g 112/78 mm[Hg] [facility] 08/18/2021 14:12:33 Date Recorded Body height Body mass index (BMI) Body weight Systolic And Diastolic Provider Name and Address Organization Details Last Updated DateTime 08/25/2021 157.48 cm 34.6 kg/m2 61156.96 g 117/78 mm[Hg] [facility] 08/25/2021 14:07:15 Date Recorded Body height Body mass index (BMI) Body weight Systolic And Diastolic Provider Name and Address Organization Details Last Updated DateTime 09/04/2024 160.02 cm 31 kg/m2 52716.66 g 130/76 mm[Hg] Kierra Tyler [facility] 09/04/2024 10:16:50 Social History Question Answer Notes LastModified by Organizat ion Details LastModified Time Tobacco Smoking Status Former Smoker Ghazal Khan judit, [facility] 07/31/2022 12:00:23 Do You Have An Advance Directive? No Information n ot available 06/25/2020 Are You Blind Or Do You Have Difficulty Seeing? No Information n ot available 06/25/2020 What Is Your Level Of Caffeine Consumption? Moderate Information not available 06/25/2020 How Much Tobacco Do You Chew? None Information not available 06/25/2020 In The 14 Days Before Symptom Onset, Have You Had Close Contact With A Laboratory-confirm ed COVID-19 While That Case Was Ill? No Information n ot available 06/25/2020 In The 14 Days Before Symptom Onset, Have You Had Close Contact With A Person Who Is Under Investigation For COVID-19 While That Person Was Ill? No Information not available 06/25/2020 Have You Been To An Area Known To Be High Risk For COVID-19? No Information not available 06/25/2020 Are You Deaf Or Do You Have Serious Difficulty Hearing? No Information not available 06/25/2020 What Type Of Diet Are You Following? REGULAR Information n ot available 06/25/2020 What Is The Highest Grade Or Level Of School You Have Completed Or The Highest Degree You Have Received? [id number] Information not available 06/25/2020 Are There Any Guns Present In Your Home? No Information not available 06/25/2020 Do You Use Protection During Sex? No Information not available 06/25/2020 Do You Use Your Seat Belt Or Car Seat Routinely? Yes Information not available 06/25/2020 Do You Have Smoke And Carbon Monoxide Detectors In Your Home? Yes Information not available 06/25/2020 How Much Tobacco Do You Smoke? No Information not available 06/25/2020 Do You Use Sunscreen Routinely? Yes Information not available 06/25/2020 Have You Used IV Drugs? No Information not available 06/25/2020 Do You Have Difficulty Walking Or Climbing Stairs? No [email or web address] Information not available 08/02/2023 Sex: Unknown Functional Status Question Answer Note LastModified by Organizat ion Details LastModified Time Do you use any illicit or recreational drugs? No Information not available 06/25/2020 What is your level of alcohol consumption? Occasional Information not available 06/25/2020 Are you currently employed? Yes Information not available 08/02/2023 Are you able to walk independently without assistance or assistive devices? YESWOREST Information not available 06/25/2020 Are you able to care for yourself independently? 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 No Information not available 08/02/2023 What is your exercise level? Occasional Information not available 06/25/2020 Mental Status Question Answer Note LastModified by Organization D etails LastModified Time Do you feel stressed (tense, restless, nervous, or anxious, or unable to sleep at night)? [id number] Information not available 06/25/2020 Family History Relationship Description Onset Age of this Age Resolved Age Notes LastModified by Organization Details LastModified Time Maternal Grandmother Cyst of ovary [email or web address] Not available 08/11 09:57:38 Maternal Aunt Malignant neoplasm of breast Not available 2020 12:04:48 Medical History Condition Response History of STI Y Gestational Diabetes Y History of abnormal pap Y Gynecological History Statement/Question Response Date of LMP On BCP's at Conception? N N Was last menstrual period normal Y STIs/STDs Yes HPV Vaccine Y Current Control Method Tubal Ligat ion Age at First Child 26 Sexually Active? Y Menses Monthly N Age of first menstrual cycle 10 Date of Last Pap Smear 08/02/2023 Sexual Problems? N Desired Control Method Ablation LMP Unknown N 01/10/2003 Obstetrics History GPAL:G 4 P 3 0 1 3 Type Value Full Term 3 Spontaneous 1 Living 3 Total 4 Past Encounters Encounter ID Performer Location Encounter Start Date Encounter Closed Date Diagnosis/Indication Diagnosis SNOMED-CT Code Diagnosis ICD10 Code Diagnosis IMO Codes Diagnosis Note [id number] David Haynes MD [place] [address] [address] 06/25/2020 11:20:01 06/25/2020 12:38:08 Gynecologic examination 36225415 Z01.419 This patient is here for her annual exam. A thorough history was taken. A physical exam was performed. Age appropriat e routine health screening was ordered, performed, and discussed. Recommende d testing was ordered. She was asked to follow up in one year. She will be informed of any test results. Cholestero l - [ ] Pap - today [id number] David Haynes MD [place] [address] [address] 07/29/2021 12:22:06 08/01/2021 14:13:10 Menorrhagia 361788766 N92.0 This patient is a 36-year-ol d female with severe menorrhagi a. We talked about all of her treatment options. Talked about medical treatment options in detail. We talked about the risks benefits of each and the details of using each medical option. We talked about procedures . Talked about endometria l ablation in detail. Reviewed the video. We spent over 40 minutes in this visit today. We agreed to proceed with endometria l ablation. I would discussed the risk. She understand s the risks, benefits, and alternativ es. She has completed the informed consent process and is ready to proceed. Sexually t ransmitted infectious disease 8802194 A64 Gynecologi c examination [id number] Z01.419 Z11.51 Z11.3 Z11.8 This patient is here for her annual exam. A thorough history was taken. A physical exam was performed. Age appropriat e routine health screening was ordered, performed, and discussed. Recommende d testing was ordered. She was asked to follow up in one year. She will be informed of any test results. Pap - today [id number] David Haynes MD [place] [address],[place] [address] 07/31/2022 11:59:44 07/31/2022 13:18:42 Gynecologic examination 90519723 Z01.419 Z11.51 Z11.3 Z11.8 This patient is here for her annual exam. A thorough history was taken. A physical exam was performed. Age appropriat e routine health screening was ordered, performed, and discussed. Recommende d testing was ordered. She was asked to follow up in one year. She will be informed of any test results. Cholestero l - pmd Pap - today [id number] David Haynes MD [place] [address],[place] [address] 08/09/2021 17:25:16 08/09/2021 17:53:03 Menorrhagia 825481759 N92.0 This patient is a 36-year-ol d female with severe menorrhagi a. We talked about all of her treatment options. Talked about medical treatment options in detail. We talked about the risks benefits of each and the details of using each medical option. We talked about procedures . Talked about endometria l ablation in detail. Reviewed the video. We spent over 40 minutes in this visit today. We agreed to proceed with endometria l ablation. I would discussed the risk. She understand s the risks, benefits, and alternativ es. She has completed the informed consent process and is ready to proceed. [id number] David Haynes MD [place] [address],[place] [address] 08/18/2021 13:57:35 08/18/2021 16:07:15 Menorrhagia 892697404 N92.0 endometria l ablation was performed without complicati on. She tolerated well.. [id number] David Haynes MD [place] [address],[place] [address] 08/25/2021 13:56:10 08/25/2021 14:57:20 Herpes simplex 71394567 B00.9 This patient is a 36-year-ol d female who presents for follow-up on herpes testing. 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 We discussed HSV 2 in great detail. We talked about transmissi on, treatment, asymptomat ic shedding, asymptomat ic transmissi on, talked about HSV 1 and its relationsh ip to HSV 2. We spent over 40 minutes face-to-fa ce. More than 50% was counseling . I educated her very thoroughly on HSV. We agreed to have treatment available for symptomati c outbreaks. Talked about her menorrhagi a. We talked about her treatment. We talked about how she felt after treatment with ablation. We talked about follow-up and her vaginal discharge associated with the procedure. We spoke about 2 complex issues at length. [id number] David Haynes MD [place] [address],[place] [address] 08/02/2023 09:38:26 08/02/2023 10:13:51 Gynecologic examination [id number] Z01.419 Z11.51 This patient is here for her annual exam. A thorough history was taken. A physical exam was performed. Age appropriat e routine health screening was ordered, performed, and discussed. Recommende d testing was ordered. She was asked to follow up in one year. She will be informed of any test results. Cholestero l - pmd Pap - today [id number] David Haynes MD [place] [address],[place] [address] 09/04/2024 09:57:26 09/04/2024 11:15:18 Gynecologic examination 76057979 Z01.419 106303 This patient is here for her annual exam. A thorough history was taken. A physical exam was performed. Age appropriat e routine health screening was ordered, performed, and discussed. Recommende d testing was ordered. She was asked to follow up in one year. She will be informed of any test results. Cholestero l - pmd Pap - today Health Concerns Section Related Observation LastModified by Organization Detai ls LastModified Time None Recorded Concern Status LastModified by Organization Details LastModified Time None Recorded Advance Directives Directive N: Payers Insurance Date Sequence Insurance Name Policy Number Policy Valdes Covered Member ID Valdes Member ID Guarantor Name 08/29/2024 1 [place] [id number] Ashley Urbano [id number] Ashley Urbano 08/29/2024 1 [employer] [place] Ashley Urbano [id number] Ashley Urbano 09/03/2024 1 [place] [id number] Ashley Urbano [id number] Ashley Urbano 08/29/2024 1 [employer] [place] [id number] Ashley Urbano [id number] Ashley Urbano Notes Date Note Type Note Provider Name and Address Organization Details Recorded Time 08/19/19 22 text/htm l Patient presents for endometrial ablation. She has menorrhagia. David Haynes MD [address], [place], [address], [facility] 08/18/2021 14:53:59 08/26/19 22 text/htm l This patient is a 36-year-old female who presents for follow-up on herpes testing. 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 We discussed HSV 2 in great detail. We talked about transmission, treatment, asymptomatic shedding, asymptomatic transmission, talked about HSV 1 and its relationship to HSV 2. We spent over 40 minutes [id number]. More than 50% was counseling. I educated her very thoroughly on HSV. We agreed to have treatment available for symptomatic outbreaks. Talked about her menorrhagia. We talked about her treatment. We talked about how she felt after treatment with ablation. We talked about follow-up and her vaginal discharge associated with the procedure. We spoke about 2 complex issues at length. David Haynes MD [address], [place], [address], [facility] 08/25/2021 14:45:08 08/01/19 23 text/htm l Annual GYNReported by PatientHistoryFor history, patient reportsno gynecologic complaints.Genitourinary symptomsFor menstrual cycle, patient reportsnormal menses. For urinary symptoms, patient reportsno hematuriaandno incontinence. For vulva, patient reportsno genital lesion. For vagina, patient reportsnormal vaginal discharge.Breast symptomsFor breast, patient reportsno breast painandno breast lump.ContraceptionFor current contraception, patient reportssatisfied with current contraception.Endocrine symptomsFor sexual complaints, patient reportsno sexual complaintsandno pain during intercourse.Psychological symptomsFor psychological symptoms, patient reportsno depressionandno anxiety.Preventative measuresFor preventive measures, patient reportsencourage self breast examinationandencourage regular exercise. David Haynes MD [address], [place], [address], [facility] 07/31/2022 13:05:00 08/02/19 24 text/htm l Annual GYNReported by PatientHistoryFor history, patient reportsno gynecologic complaints.Genitourinary symptomsFor menstrual cycle, patient reportsnormal menses. For urinary symptoms, patient reportsno hematuriaandno incontinence. For vulva, patient reportsno genital lesion. For vagina, patient reportsnormal vaginal discharge.Breast symptomsFor breast, patient reportsno breast painandno breast lump.ContraceptionFor current contraception, patient reportssatisfied with current contraception.Endocrine symptomsFor sexual complaints, patient reportsno sexual complaintsandno pain during intercourse. For menopausal symptoms, patient reportsno menopausal symptoms.Psychological symptomsFor psychological symptoms, patient reportsno depressionandno anxiety.Preventative measuresFor preventive measures, patient reportsencourage self breast examinationandencourage regular exercise. David Haynes MD [address], [place], [address], [facility] 08/02/2023 10:13:20 09/05/19 25 text/htm l Annual GYNReported by PatientHistoryFor history, patient reportsno gynecologic complaints.Genitourinary symptomsFor menstrual cycle, patient reportsnormal menses. For urinary symptoms, patient reportsno hematuria. For vulva, patient reportsno genital lesion. For vagina, patient reportsnormal vaginal discharge.Breast symptomsFor breast, patient reportsno breast painandno breast lump.ContraceptionFor current contraception, patient reportstubal ligation.Endocrine symptomsFor menopausal symptoms, patient reportsinadequacy of lubrication of vaginal mucosabut reportsno menopausal symptoms. For sexual complaints, patient reportsno sexual complaintsandno pain during intercourse.Psychological symptomsFor psychological symptoms, patient reportsno depressionandno anxiety.Preventative measuresFor preventive measures, patient reportsencourage self breast examinationandencourage regular exercise. David Haynes MD [address], [place], [address], [facility] 09/04/2024 11:12:39 OBGyn Episode Ob Episode Information Episode Created Date Number of Fetuses Patient Bloodtype Patient rh Status Prepregnancy Weight lbs Domestic Partner Domestic Partner Phone Father Name And Taxi Instructor Bus Trolley Status 06/26/19 21 1 CLOSED Fetus Data First Name Last Name Admitted to NICU Weight (g) Sex Living Outcome Pediatric Complications Fetus ID Race Codes Race Delivery Type 3572.03 7 F [id number] Vaginal Delivery Dequan Calculation Initial Dequan Date Initial Exam Date Initial Exam Provider Initial Ultrasound Date Last Menstrual Period Date Ultra Sound Weeks Gestation 0 Eighteen To Twenty Week Dequan Update Ultra Sound Date Fundal Height At Umbil Quickening Date Ultra Sound Latest Weeks Gestation Final Dequan Confirmed By Final Dequan Confirmed Date Final Dequan Date Ultra Sound Latest Days Gestation 0 0 Menstrual History Last Menstrual Date Menses Monthly On Bcp Conception Prior Menses Frequency Hcg Plus Date Menarche Onset Age Delivery Information Delivery Date Delivery Type Labor Anesthesia Weeks Gestation Incision Type Labor Labor Length Hrs Delivered By Post Complications Tubal Sterilization Discharge Date Comments 5 GDM and LGA Discharge Information Feeding Method Contraceptive Method Maternal HG B and HCT Levels Ob Episode Information Episode Created Date Number of Fetuses Patient Bloodtype Patient rh Status Prepregnancy Weight lbs Domestic Partner Domestic Partner Phone Father Name And Taxi Instructor Bus Trolley Status 06/26/19 21 1 CLOSED Fetus Data First Name Last Name Admitted to NICU Weight (g) Sex Living Outcome Pediatric Complications Fetus ID Race Codes Race Delivery Type 3175.14 4 M Full Term [id number] Vaginal Delivery Dequan Calculation Initial Dequan Date Initial Exam Date Initial Exam Provider Initial Ultrasound Date Last Menstrual Period Date Ultra Sound Weeks Gestation 0 Eighteen To Twenty Week Dequan Update Ultra Sound Date Fundal Height At Umbil Quickening Date Ultra Sound Latest Weeks Gestation Final Dequan Confirmed By Final Dequan Confirmed Date Final Dequan Date Ultra Sound Latest Days Gestation 0 0 Menstrual History Last Menstrual Date Menses Monthly On Bcp Conception Prior Menses Frequency Hcg Plus Date Menarche Onset Age Delivery Information Delivery Date Delivery Type Labor Anesthesia Weeks Gestation Incision Type Labor Labor Length Hrs Delivered By Post Complications Tubal Sterilization Discharge Date Comments 3 38 vertex Discharge Information Feeding Method Contraceptive Method Maternal HG B and HCT Levels Ob Episode Information Episode Created Date Number of Fetuses Patient Bloodtype Patient rh Status Prepregnancy Weight lbs Domestic Partner Domestic Partner Phone Father Name And Taxi Instructor Bus Trolley Status 06/26/19 21 1 CLOSED Fetus Data First Name Last Name Admitted to NICU Weight (g) Sex Living Outcome Pediatric Complications Fetus ID Race Codes Race Delivery Type 3798.83 3 F Full Term 9147 Vaginal Delivery Dequan Calculation Initial Dequan Date Initial Exam Date Initial Exam Provider Initial Ultrasound Date Last Menstrual Period Date Ultra Sound Weeks Gestation 0 Eighteen To Twenty Week Dequan Update Ultra Sound Date Fundal Height At Umbil Quickening Date Ultra Sound Latest Weeks Gestation Final Dequan Confirmed By Final Dequan Confirmed Date Final Dequan Date Ultra Sound Latest Days Gestation 0 0 Menstrual History Last Menstrual Date Menses Monthly On Bcp Conception Prior Menses Frequency Hcg Plus Date Menarche Onset Age Delivery Information Delivery Date Delivery Type Labor Anesthesia Weeks Gestation Incision Type Labor Labor Length Hrs Delivered By Post Complications Tubal Sterilization Discharge Date Comments 9 39 GDM Discharge Information Feeding Method Contraceptive Method Maternal HG B and HCT Levels Ob Episode Information Episode Created Date Number of Fetuses Patient Bloodtype Patient rh Status Prepregnancy Weight lbs Domestic Partner Domestic Partner Phone Father Name And Taxi Instructor Bus Trolley Status 06/26/19 21 1 CLOSED Fetus Data First Name Last Name Admitted to NICU Weight (g) Sex Living Outcome Pediatric Complications Fetus ID Race Codes Race Delivery Type , Spontane ous [id number] Dequan Calculation Initial Dequan Date Initial Exam Date Initial Exam Provider Initial Ultrasound Date Last Menstrual Period Date Ultra Sound Weeks Gestation 0 Eighteen To Twenty Week Dequan Update Ultra Sound Date Fundal Height At Umbil Quickening Date Ultra Sound Latest Weeks Gestation Final Dequan Confirmed By Final Dequan Confirmed Date Final Dequan Date Ultra Sound Latest Days Gestation 0 0 Menstrual History Last Menstrual Date Menses Monthly On Bcp Conception Prior Menses Frequency Hcg Plus Date Menarche Onset Age Delivery Information Delivery Date Delivery Type Labor Anesthesia Weeks Gestation Incision Type Labor Labor Length Hrs Delivered By Post Complications Tubal Sterilization Discharge Date Comments 7 Discharge Information Feeding Method Contraceptive Method Maternal HG B and HCT Levels
== END 2025-01-15 14:19 | disposition home or self-care (01) ==
PROVIDERS: PCP Obstetrics & Gynecology; Visit Provider Obstetrics & Gynecology
DX: Z12.31 Encounter for screening mammogram for malignant neoplasm of breast (principal); Z98.82 Breast implant status
CPT/HCPCS: 77063; 77067